=== PATIENT | female | born 1945 | race Caucasian/White ===

== ENCOUNTER 2016-12-19 14:15 | Outpatient (CLI) | payer OTHER | END 2016-12-19 20:01 | disposition home or self-care (01) | LOC: SMA 14:15 | DX: Z12.31 Encounter for screening mammogram for malignant neoplasm of breast (principal) | CPT/HCPCS: G0202 ==

== ENCOUNTER 2020-10-02 13:25 | Outpatient (CLI) | payer OTHER | END 2020-10-02 21:06 | disposition home or self-care (01) | LOC: SMA 13:25 | PROVIDERS: ATTEND Family Medicine | DX: Z12.31 Encounter for screening mammogram for malignant neoplasm of breast (principal) | CPT/HCPCS: 77067 ==

== ENCOUNTER 2022-12-04 18:52 | Emergency (ER) | payer OTHER ==
[~2022-12-04] VITALS: Ht 172.7 cm; Wt 72.6 kg
[2022-12-04 19:06] VITALS: BP_SYST 144
--- NOTE | 2022-12-04 19:23 | NUR ---
Patient to ER bed 3 to gown for evaluation. Side rails up. Report given to FARA GOOD(REG).
--- NOTE | 2022-12-04 19:38 | NUR ---
PT REPORT RECVD FROM EMT. PT C/O OSTOMY LEAKING. WAS REPLACED EARLIER TO DAY AT [facility]F BUT IS LEAKING. PT DENIES ANY MEDICAL COMPLAINTS. BEDSIDE. PT PLACED ON MONITOR. PENDING ORDERS
--- NOTE | 2022-12-04 20:40 | NUR ---
OSTOMY BAG CHANGED PER ORDERS, PT TOLERATED WELL
--- NOTE | 2022-12-04 23:10 | NUR ---
EMS BEDSIDE TO REVC PT. PT TRANSPORTED TO SNF
[2022-12-04 23:31] VITALS: BP_SYST 112
== END 2022-12-04 23:10 | disposition home or self-care (01) ==
LOC: SED 18:52
DX: Z43.3 Encounter for attention to colostomy (principal); I10 Essential (primary) hypertension; Z79.899 Other long term (current) drug therapy
CPT/HCPCS: 99283